=== PATIENT | male | born 1960 | race African-American/Black ===

== ENCOUNTER 2020-10-26 13:27 | Inpatient (IN) | payer BC ==
[2020-10-26] MEDS ORDERED: MORPHINE SULFATE 2 MG/ML VIAL IVPUSH ONE (14:32)
[2020-10-26] MEDS ORDERED: ONDANSETRON 4 MG/2 ML VIAL IVPUSH ONE (14:32)
[2020-10-26] MEDS ORDERED: SODIUM CHLORIDE 1,000 ML IV STA (14:32)
[2020-10-26] MEDS ORDERED: MORPHINE SULFATE 2 MG/ML VIAL ONE (14:44)
[2020-10-26] MEDS ORDERED: ONDANSETRON 4 MG/2 ML VIAL ONE (14:45)
[2020-10-26 15:41] LABS: BASO % 1.3 % (0-2.0); EOS % 5.9 % (0-4.5); HEMATOCRIT 36.8 % (35.4-49); HEMOGLOBIN 12.8 GM/dL (11.7-16.9); MCH 32.1 pg (25.7-33.7); MCHC 34.9 g/dl (32.0-35.9); MEAN CELL VOLUME 91.8 fl (80-96); MONO % 8.6 % (3.8-10.2); NEUT % 41.2 % (42.8-82.8); PLATELET COUNT 255 10^3/uL (134-434); RDW 13.3 % (11.9-15.9); WHITE BLOOD COUNT 4.2 K/mm3 (4.0-10.0)
[2020-10-26 15:48] LABS: INR 1.09 (0.83-1.09); PROTHROMBIN TIME (PATIENT) 13.4 SEC (9.7-13.0)
[2020-10-26 15:51] LABS: ACTIVATED PTT 31.4 SECONDS (25.2-36.5)
[2020-10-26 15:57] LABS: BLOOD UREA NITROGEN 9.1 mg/dL (7-18); CALCIUM 9.2 mg/dL (8.5-10.1)
[2020-10-26 16:02] LABS: BILIRUBIN,TOTAL 0.6 mg/dL (0.2-1); TOT PROT 7.7 g/dl (6.4-8.2)
[2020-10-26 23:13] VITALS: BMI 27.6
[2020-10-26] MEDS ORDERED: PT OWN MED DRAWER 7, Y5N ONE (23:24)
[2020-10-26] MEDS ORDERED: MORPHINE SULFATE 2 MG/ML VIAL IVPUSH PRN (23:28)
[2020-10-27] MEDS ORDERED: morphine SULFATE 4 MG/ML VIAL IVPUSH PRN (06:15)
[2020-10-27] MEDS ORDERED: MORPHINE SULFATE 2 MG/ML VIAL IVPUSH PRN (06:16)
[2020-10-27 07:43] LABS: BASO % 1.1 % (0-2.0); EOS % 7.3 % (0-4.5); HEMATOCRIT 36.3 % (35.4-49); HEMOGLOBIN 12.8 GM/dL (11.7-16.9); LYMPH % 48.2 % (8-40); MCH 32.4 pg (25.7-33.7); MCHC 35.2 g/dl (32.0-35.9); MEAN CELL VOLUME 91.9 fl (80-96); MONO % 8.1 % (3.8-10.2); NEUT % 35.3 % (42.8-82.8); PLATELET COUNT 249 10^3/uL (134-434); RBC 3.95 M/mm3 (4.00-5.60); RDW 13.2 % (11.9-15.9); WHITE BLOOD COUNT 4.5 K/mm3 (4.0-10.0)
[2020-10-27 08:05] LABS: ALBUMIN 3.7 g/dl (3.4-5.0)
[2020-10-27 08:06] LABS: TOT PROT 7.3 g/dl (6.4-8.2)
[2020-10-27 08:07] LABS: CALCIUM 8.9 mg/dL (8.5-10.1)
[2020-10-27 08:08] LABS: MAGNESIUM 2.1 mg/dL (1.8-2.4)
[2020-10-27 08:09] LABS: BILIRUBIN,TOTAL 0.7 mg/dL (0.2-1); BLOOD UREA NITROGEN 11.4 mg/dL (7-18)
[2020-10-27 08:10] LABS: PHOSPHOROUS 3.3 mg/dL (2.5-4.9)
[2020-10-27] MEDS ORDERED: SUCCINYLCHOLINE CHLORIDE 200 MG/10 ML SYRINGE ONE ×2 (08:12→12:04)
[2020-10-27] MEDS ORDERED: PROPOFOL 20 ML ONE ×4 (08:12→12:03)
[2020-10-27] MEDS ORDERED: MIDAZOLAM HCL 2 MG/2 ML SINGLE DOSE VIAL ONE ×2 (08:16→08:31)
[2020-10-27] MEDS ORDERED: GLYCOPYRROLATE 0.2 MG/1 ML VIAL ONE (08:31)
[2020-10-27] MEDS ORDERED: ceFAZolin SODIUM 1 GM VIAL ONE (08:31)
[2020-10-27] MEDS ORDERED: ceFAZolin SODIUM 1 GM VIAL IVPB ONE (08:45)
[2020-10-27] MEDS ORDERED: ENOXAPARIN NA (PORCINE) 40 MG/0.4 ML DISP.SYRIN SQ SCH (10:00)
[2020-10-27] MEDS ORDERED: CEFAZOLIN 1 GM/D5W 1 GM/50 ML BAG IVPB SCH (10:11)
[2020-10-27] MEDS ORDERED: ACETAMINOPHEN 325 MG TABLET (FP) PO PRN (10:30)
[2020-10-27] MEDS: oxyCODONE HCL 5 MG TABLET PO PRN ×2 (13:48→19:38)
[2020-10-27] MEDS: ACETAMINOPHEN 325 MG TABLET (FP) PO PRN ×2 (13:49→19:37)
[2020-10-27] MEDS: CHOLECALCIFEROL (VIT D3) 1,000 UNIT (25 MCG) TABLET PO SCH (13:50)
[2020-10-27] MEDS: DOCUSATE SODIUM 100 MG CAPSULE (FP) PO SCH ×2 (13:50→21:22)
[2020-10-27] MEDS: CEFAZOLIN 1 GM/D5W 1 GM/50 ML BAG IVPB SCH (16:43)
[2020-10-28] MEDS: CEFAZOLIN 1 GM/D5W 1 GM/50 ML BAG IVPB SCH ×2 (01:18→08:53)
[2020-10-28] MEDS: oxyCODONE HCL 5 MG TABLET PO PRN ×4 (01:47→21:04)
[2020-10-28] MEDS: DOCUSATE SODIUM 100 MG CAPSULE (FP) PO SCH ×3 (04:59→21:04)
[2020-10-28 07:44] LABS: HEMATOCRIT 33.9 % (35.4-49); HEMOGLOBIN 11.8 GM/dL (11.7-16.9); MCH 32.1 pg (25.7-33.7); MCHC 34.8 g/dl (32.0-35.9); MEAN CELL VOLUME 92.4 fl (80-96); MEAN PLT VOLUME 7.7 fl (7.5-11.1); PLATELET COUNT 231 10^3/uL (134-434); RBC 3.66 M/mm3 (4.00-5.60); RDW 13.1 % (11.9-15.9); WHITE BLOOD COUNT 5.5 K/mm3 (4.0-10.0)
[2020-10-28 07:56] LABS: CALCIUM 8.6 mg/dL (8.5-10.1)
[2020-10-28 07:57] LABS: BLOOD UREA NITROGEN 10.2 mg/dL (7-18)
[2020-10-28] MEDS: ACETAMINOPHEN 325 MG TABLET (FP) PO PRN ×2 (08:54→15:36)
[2020-10-28] MEDS: CHOLECALCIFEROL (VIT D3) 1,000 UNIT (25 MCG) TABLET PO SCH (09:06)
[2020-10-28] MEDS: ENOXAPARIN NA (PORCINE) 40 MG/0.4 ML DISP.SYRIN SQ SCH (09:06)
[2020-10-29] MEDS: DOCUSATE SODIUM 100 MG CAPSULE (FP) PO SCH ×2 (06:19→13:47)
[2020-10-29 08:25] LABS: HEMATOCRIT 36.9 % (35.4-49); HEMOGLOBIN 13.1 GM/dL (11.7-16.9); MCH 32.5 pg (25.7-33.7); MCHC 35.4 g/dl (32.0-35.9); MEAN CELL VOLUME 91.8 fl (80-96); MEAN PLT VOLUME 7.9 fl (7.5-11.1); PLATELET COUNT 248 10^3/uL (134-434); RBC 4.02 M/mm3 (4.00-5.60); RDW 13.1 % (11.9-15.9); WHITE BLOOD COUNT 5.2 K/mm3 (4.0-10.0)
[2020-10-29 08:41] LABS: BLOOD UREA NITROGEN 8.3 mg/dL (7-18); CALCIUM 9.2 mg/dL (8.5-10.1)
[2020-10-29 08:45] LABS: CREATININE 0.9 mg/dL (0.55-1.3)
[2020-10-29] MEDS: ENOXAPARIN NA (PORCINE) 40 MG/0.4 ML DISP.SYRIN SQ SCH (09:20)
[2020-10-29] MEDS: CHOLECALCIFEROL (VIT D3) 1,000 UNIT (25 MCG) TABLET PO SCH (09:20)
[2020-10-29] MEDS: oxyCODONE HCL 5 MG TABLET PO PRN (11:16)
[2020-10-29] MEDS: ACETAMINOPHEN 325 MG TABLET (FP) PO PRN (11:17)
[2020-10-29 11:22] VITALS: BP 131/70; PULSE 60; TEMP 98.4
[2020-10-29] MEDS ORDERED: PT OWN MED DRAWER 7, Y5N ONE (13:46)
== END 2020-10-29 18:58 | disposition home or self-care (01) | DRG 482 ==
LOC: JER 13:27 → JERBED 16:13 → J6S 21:19
PROVIDERS: ADMIT Internal Medicine; ATTEND Internal Medicine
PROC: 0QS604Z Reposition Right Upper Femur with Internal Fixation Device, Open Approach (ICD-10-PCS; principal; 2020-10-27 08:00)
DX: S72.091A Other fracture of head and neck of right femur, initial encounter for closed fracture (principal); W19.XXXA Unspecified fall, initial encounter; Y93.9 Activity, unspecified; Y92.89 Other specified places as the place of occurrence of the external cause; Y99.9 Unspecified external cause status
CPT/HCPCS: 36415; 71045-TC-FY; 73502-TC-RT-FY; 73700-TC-RT; 76000-TC-FY; 80048; 80053; 80307; 83036; 83735; 84100; 84443; 85025; 85027; 85610; 85730; 86850; 86900; 86901; 93005; 93010; 94760; 97116-GP; 97162-GP; 99285-25; C9803; U0003; U0005

== ENCOUNTER 2021-06-02 09:24 | Day surgery (SDC) | payer BC ==
[2021-05-29 11:07] VITALS: BMI 28.1
[2021-06-02] MEDS ORDERED: PROPOFOL 20 ML ONE ×2 (11:27→11:43)
[2021-06-02 12:18] VITALS: BP 120/78; PULSE 63; TEMP 97.3
== END 2021-06-02 12:27 | disposition home or self-care (01) ==
LOC: FASU-ENDO 09:24
PROVIDERS: ATTEND Internal Medicine Gastroenterology
PROC: 0DBL8ZX Excision of Transverse Colon, Via Natural or Artificial Opening Endoscopic, Diagnostic (ICD-10-PCS; 2021-06-02)
PROC: 0DBN8ZX Excision of Sigmoid Colon, Via Natural or Artificial Opening Endoscopic, Diagnostic (ICD-10-PCS; 2021-06-02)
PROC: 0DBK8ZX Excision of Ascending Colon, Via Natural or Artificial Opening Endoscopic, Diagnostic (ICD-10-PCS; 2021-06-02)
PROC: 0DBL8ZX Excision of Transverse Colon, Via Natural or Artificial Opening Endoscopic, Diagnostic (ICD-10-PCS; 2021-06-02)
PROC: 0DBN8ZX Excision of Sigmoid Colon, Via Natural or Artificial Opening Endoscopic, Diagnostic (ICD-10-PCS; 2021-06-02)
PROC: 0DBK8ZX Excision of Ascending Colon, Via Natural or Artificial Opening Endoscopic, Diagnostic (ICD-10-PCS; principal; 2021-06-02 11:16)
DX: Z12.11 Encounter for screening for malignant neoplasm of colon (principal); Z83.71 Family history of colonic polyps; D12.2 Benign neoplasm of ascending colon; D12.3 Benign neoplasm of transverse colon; K63.89 Other specified diseases of intestine
CPT/HCPCS: 88305-TC

== ENCOUNTER 2021-09-08 10:38 | Emergency (ER) | payer BC, OTHER ==
[2021-09-08 10:55] VITALS: BP 147/85; PULSE 71; TEMP 98.4; BMI 29.3
[2021-09-08] MEDS ORDERED: DIPHTH,PERTUSS(ACELL),TET 0.5 ML DISP.SYRIN IM ONE ×2 (13:11→13:14)
== END 2021-09-08 14:57 | disposition home or self-care (01) ==
LOC: JER 10:38
PROC: 0HQ0XZZ Repair Scalp Skin, External Approach (ICD-10-PCS; principal; 2021-09-08)
PROC: 3E0234Z Introduction of Serum, Toxoid and Vaccine into Muscle, Percutaneous Approach (ICD-10-PCS; 2021-09-08)
DX: S01.01XA Laceration without foreign body of scalp, initial encounter (principal); S00.03XA Contusion of scalp, initial encounter; W01.0XXA Fall on same level from slipping, tripping and stumbling without subsequent striking against object, initial encounter
CPT/HCPCS: 70450-TC; 72125-TC; 90715; 99284-25

== ENCOUNTER 2021-09-15 08:02 | Emergency (ER) | payer OTHER ==
[2021-09-15 08:25] VITALS: BP 121/76; PULSE 66; RESP 18; TEMP 98.3; BMI 29.3
== END 2021-09-15 12:51 | disposition home or self-care (01) ==
LOC: JERFT 08:02
DX: Z48.01 Encounter for change or removal of surgical wound dressing (principal)
CPT/HCPCS: 99281-25